=== PATIENT | female | born 1970 ===

== ENCOUNTER → 2019-09-06 | Day surgery (SDC) | payer OTHER | END | disposition home or self-care (01) | LOC: ADM 09-02 13:30 → AMB-ENDOS 07:00 | DX: K64.2 Third degree hemorrhoids (principal); K63.89 Other specified diseases of intestine; K92.1 Melena ==

== ENCOUNTER 2023-03-08 08:10 | Day surgery (SDC) | payer OTHER ==
[~2023-03-08 08:10] MED LIST: AMITRIPTYLINE H10 MG PO; ATORVASTATIN CA10 MG PO; B-COMPLEX1 EACH PO; LEVOXYL125 MCG PO; LEVOXYL137 MCG PO; LOVAZA1 GM PO; MELOXICAM15 MG PO; PROBIOTIC1 EAC4 PO; VITAMIN D PO; VITAMIN E400 UNI7 PO; ZANAFLEX4 M1 PO; [UNRECOGNIZED DRUG - OTHER] SL
== END 2023-03-08 21:15 | disposition home or self-care (01) ==
LOC: CIR.AMB 08:10
PROVIDERS: ATTEND Colon & Rectal Surgery
DX: K64.4 Residual hemorrhoidal skin tags (principal); K64.8 Other hemorrhoids; K59.01 Slow transit constipation; K92.1 Melena; K58.9 Irritable bowel syndrome, unspecified; K29.00 Acute gastritis without bleeding; K21.9 Gastro-esophageal reflux disease without esophagitis; Z20.822 Contact with and (suspected) exposure to COVID-19